=== PATIENT | female | born 2005 | race Two or more races ===

== ENCOUNTER 2025-02-28 15:39 | Emergency (ER) | payer OTHER ==
[~2025-02-28] VITALS: Ht 162.6 cm; Wt 55.8 kg
[2025-02-28] MEDS ORDERED: PENICILLAMINE PO (16:38)
[2025-02-28] MEDS ORDERED: PROAIR RESPICL90 MCG (16:38)
[2025-02-28] MEDS ORDERED: CLARITIN10 M1 (16:38)
[2025-02-28] MEDS ORDERED: KETOROLAC TROMETHAMINE 30 MG VIAL IM ONE (19:00)
[2025-02-28] MEDS ORDERED: DEXAMETHASONE SODIUM PHOSPHATE 4 MG/ML VIAL IM ONE (19:00)
[2025-02-28] MEDS ORDERED: CEFTRIAXONE SODIUM 1,000 MG VIAL IM ONE (19:00)
[2025-02-28] MEDS ORDERED: AMOX-CLAV 875-1 EACH PO (19:11)
[2025-02-28] MEDS ORDERED: CIPROFLOX-DEXA7.5 ML OT (19:11)
[2025-02-28] MEDS ORDERED: IBUPROFEN600 MG PO (19:11)
== END 2025-02-28 20:13 | disposition home or self-care (01) ==
LOC: ER 15:39
DX: H60.91 Unspecified otitis externa, right ear (principal); Z87.09 Personal history of other diseases of the respiratory system; Z91.040 Latex allergy status